=== PATIENT | male | born 1980 | race African-American/Black ===

== ENCOUNTER 2018-10-24 19:22 | Emergency (ER) | payer OTHER ==
[2018-10-24 19:51] VITALS: BP 124/69
[2018-10-24] MEDS ORDERED: DIPH/PERTUSS(ACELL)/TETANUS VAC/PF 0.5 ML SYR (>=10YO) IM ONE (20:00)
[2018-10-24] MEDS ORDERED: LIDOCAINE 1% INJ-PF (10 MG/ML) 30 ML SDV INJ ONE (20:03)
--- NOTE | 2018-10-24 20:19 | ER Document Report ---
HPI - HPI Time Seen by Provider: 10/24/18 20:03 Pain Level: 3 Notes: Patient is a 38-year-old male no significant past medical history who presents to the emergency department complaining of a laceration to his left forearm by a juke box mechanic prior to arrival. Patient states that it was brand-new and it was accidental. Patient states that it does not appear to be a deep cut, but it does look like it needs stitches. Denies drug allergies. He does not have any pain that radiates. He is still able to move his wrist and fingers without any difficulties. Patient states that the bleeding has been well controlled with a bandage. Patient is unsure of his last tetanus. No other concerns or complaints. Denies any headache, fever, URI, sore throat, chest pain, palpitations, syncope, cough, shortness of breath, wheeze, dyspnea, abdominal pain, nausea/vomiting/diarrhea, urinary retention, dysuria, hematuria, numbness/tingling, muscle paralysis/weakness, or rash. - ROS Systems Reviewed and Negative: Yes All other systems reviewed and negative - CONSTITUTIONAL Constitutional: DENIES: Fever, Chills Past Medical History - Social History Smoking Status: Never Smoker Chew tobacco use (# tins/day): No Frequency of alcohol use: None Drug Abuse: None Family History: Reviewed & Not Pertinent Patient has suicidal ideation: No Patient has homicidal ideation: No Endocrine Medical History: Reports: Hx Diabetes Mellitus Type 2 Renal/ Medical History: Denies: Hx Peritoneal Dialysis Past Surgical History: Reports: Hx Tonsillectomy - adnoids Vertical Provider Document - CONSTITUTIONAL Agree With Documented VS: Yes Notes: PHYSICAL EXAMINATION: GENERAL: Well-appearing, well-nourished and in no acute distress. LUNGS: Breath sounds clear to auscultation bilaterally and equal. No wheezes rales or rhonchi. HEART: Regular rate and rhythm without murmurs, rubs, gallops. Musculoskeletal: Left UE: FROM to passive/active. Strength 5+/5. N/V intact distal. No bony tenderness. Extremities: No cyanosis, clubbing, or edema b/l. Peripheral pulses 2+. Capillary refill less than 3 seconds. NEUROLOGICAL: Normal speech, normal gait. Normal sensory, motor exams PSYCH: Normal mood, normal affect. SKIN: left mid forearm: there is a superficial narrow linear laceration noted to the anterior forearm. - INFECTION CONTROL TRAVEL OUTSIDE OF THE [place] IN LAST 30 DAYS: No Course - Re-evaluation Re-evalutation: 10/24/18 20:45 Patient is an afebrile, well-hydrated, 38-year-old male presents to the emergency room with a left forearm laceration that is superficial and linear. Vitals are acceptable without any significant tachycardia, tachypnea, or hypoxia. PE is otherwise unremarkable for any neurovascular compromise, obvious tendon/ligament rupture, obvious fracture/dislocation, septic joint. Wound was thoroughly irrigated and cleansed. Wound edges were approximated appropriately utilizing 5 simple interrupted sutures. Wound dressing was placed and wound instructions reviewed. Tdap given today. Patient is nontoxic-appearing. No other labs or imaging warranted at this time based on H&P. Rx for keflex. Conservative measures otherwise for symptoms. Recheck with your PCM in 2-3 days. Suture will need removed in 10 days. Consider consult orthopedics. Return to the ED with any worsening/concerning symptoms otherwise as reviewed in discharge. Patient is in agreement. - Vital Signs Vital signs: Temp Pulse Resp BP Pulse Ox 98.0 F 87 16 124/69 98 10/24/18 19:50 10/24/18 19:50 10/24/18 19:50 10/24/18 19:50 10/24/18 19:50 Procedures - Laceration/Wound Repair Left Forearm Time completed: 20:45 Wound length (cm): 4 Wound's Depth, Shape: Superficial, Linear Laceration pre-procedure: Sterile PPE donned, Sterile drapes applied, Other - chlorhexadine/saline Anesthetic type: 1% Lidocaine Volume Anesthetic (mLs): 7 Wound explored: Clean, No foreign body removed Irrigated w/ Saline (mLs): 200 Wound Debrided: none Wound Repaired With: Sutures Suture Size/Type: 4:0, Nylon Number of Sutures: 5 Post-procedure wound care: Sterile dressing applied Post-procedure NV exam normal: Yes Complications: No Discharge - Discharge Clinical Impression: Laceration of left forearm Qualifiers: Encounter type: initial encounter Qualified Code(s): S51.812A - Laceration without foreign body of left forearm, initial encounter Condition: Stable Disposition: HOME, SELF-CARE Instructions: Antibiotic Ointment Protection ([facility]), Laceration Care ([facility]), Prophylactic Antibiotic ([facility]), Soap Cleansing ([facility]), Tetanus Immunization Given ([facility]) Additional Instructions: Do not shower or bathe for 24 hours. After 24 hours you may shower but no submersion of the wound under water. Keep the original dressing on the wound for 24 hours unless the drainage soaks through. Change the dressing daily thereafter and keep the knots of the suture material clean from any dried discharge. You may leave the wound open to the air once there is no more discharge. See your PCM in 2-3 days for a recheck. Monitor for any signs of worsening pain or redness, purulent drainage, streaks, and/or fever. Return to the ED if noticing any of the above symptoms or as needed. Take medications as directed. Your sutures will need to be removed in 10 days. Prescriptions: Cephalexin Monohydrate [Keflex 500 mg Capsule] 500 mg PO TID #15 capsule Referrals: [facility]AL[facility],NO [Primary Care Provider] - Follow up as needed [facility] [Provider Group] - Follow up as needed
== END 2018-10-24 21:02 | disposition home or self-care (01) ==
LOC: ER 19:22
DX: S51.812A Laceration without foreign body of left forearm, initial encounter (principal); W26.0XXA Contact with knife, initial encounter; E11.9 Type 2 diabetes mellitus without complications; Z23 Encounter for immunization
CPT/HCPCS: 90715; 99282; 90471; 12002; J3490